=== PATIENT | male | born 1970 | race Caucasian/White ===

== ENCOUNTER 2017-02-24 08:31 | Emergency (ER) | payer OTHER ==
[2017-02-24] MEDS: KETOROLAC 60 MG INJ IM (09:25)
== END 2017-02-24 11:15 | disposition home or self-care (01) ==
LOC: E/R 08:31
DX: S42.215A Unspecified nondisplaced fracture of surgical neck of left humerus, initial encounter for closed fracture (principal); I10 Essential (primary) hypertension; E11.9 Type 2 diabetes mellitus without complications; W01.0XXA Fall on same level from slipping, tripping and stumbling without subsequent striking against object, initial encounter; Y92.89 Other specified places as the place of occurrence of the external cause; Z79.4 Long term (current) use of insulin; Z79.82 Long term (current) use of aspirin
CPT/HCPCS: 73030; 73060; 96372; 99284-25

== ENCOUNTER 2017-04-28 21:16 | Inpatient (IN) | payer OTHER ==
[2017-04-28] MEDS: PIPER-TAZO 3.375 GM IV (PMX) 100 ML IVPB (22:41)
[2017-04-28] MEDS: SODIUM CHLORIDE 0.9% 1L BAG IV* (22:41)
[2017-04-28 22:49] LABS: ADD MAN DIFF? NO
[2017-04-28 22:52] LABS: BASOPHIL # 0.1 10^3/ul (0.0-0.1); BASOPHILS % 0.4 % (0.0-2.0); EOSINOPHILS # 0.2 10^3/ul (0.0-0.5); EOSINOPHILS % 1.4 % (0.0-7.0); HEMATOCRIT 34.2 % (42.0-52.0); LYMPHOCYTES % 17.1 % (15.0-51.0); MEAN CORPUSCULAR HEMOGLOBIN 31.1 pg (29.0-33.0); MEAN CORPUSCULAR HGB CONC 35.1 g/dl (32.0-37.0); MEAN CORPUSCULAR VOLUME 88.6 fl (82.0-101.0); MEAN PLATELET VOLUME 9.2 fl (7.4-10.4); MONOCYTE # 0.8 10^3/ul (0.3-0.9); MONOCYTES % 7.2 % (0.0-11.0); NEUTROPHIL # 8.4 10^3/ul (1.6-7.5); NEUTROPHILS % 73.4 % (39.0-77.0); PLATELET COUNT 287 10^3/UL (140-415); RED BLOOD COUNT 3.86 10^6/ul (4.70-6.10); RED CELL DISTRIBUTION WIDTH 11.9 % (11.5-14.5)
[2017-04-28 22:52] LABS: WHITE BLOOD COUNT 11.5 10^3/ul (4.8-10.8)
[2017-04-28] MEDS: LABETALOL HCL 20MG INJ IV (23:00)
[2017-04-28 23:11] LABS: INR 0.99; PROTIME 13.2 Sec (11.9-14.9)
[2017-04-28 23:12] LABS: PARTIAL THROMBOPLASTIN TIME 32.9 Sec (25.0-35.0)
[2017-04-28 23:14] LABS: ALANINE AMINOTRANSFERASE 12 IU/L (13-69); ALBUMIN 4.2 g/dl (3.3-4.9); ALBUMIN/GLOBULIN RATIO 1.16; ALKALINE PHOSPHATASE 129 IU/L (42-121); ANION GAP 16 (8-16); ASPARTATE AMINO TRANSFERASE 14 IU/L (15-46); BILIRUBIN,INDIRECT 0.3 mg/dl (0-1.1); BILIRUBIN,TOTAL 0.3 mg/dl (0.2-1.3); BLOOD UREA NITROGEN 15 mg/dl (7-20); CALCIUM 9.4 mg/dl (8.4-10.2); CARBON DIOXIDE 27 mmol/L (21-31); CHLORIDE 104 mmol/L (97-110); CREATININE 0.73 mg/dl (0.61-1.24); GLUCOSE 165 mg/dl (70-220); POTASSIUM 3.9 mmol/L (3.5-5.1); SODIUM 143 mmol/L (135-144); TOTAL PROTEIN 7.8 g/dl (6.1-8.1)
[2017-04-28 23:16] LABS: LACTIC ACID 1.1 mmol/L (0.5-2.0)
[2017-04-28 23:21] LABS: HEMOGLOBIN A1C 6.3 % (0-5.9)
[2017-04-28 23:26] LABS: TROPONIN-I < 0.012 ng/ml (0.00-0.12)
[2017-04-29] MEDS: VANCOMYCIN 1 GM (PMX) 250 ML IVPB (00:15)
[2017-04-29 01:04] LABS: LACTIC ACID 1.2 mmol/L (0.5-2.0)
[2017-04-29] MEDS ORDERED: ONDANSETRON 4 MG INJ IV ×2 (02:30)
[2017-04-29 03:00] LABS: LACTIC ACID 0.8 mmol/L (0.5-2.0)
[2017-04-29] MEDS: KETOROLAC 30 MG INJ IV ×3 (04:14→21:12)
[2017-04-29 06:14] LABS: ADD MAN DIFF? NO
[2017-04-29 06:23] LABS: WHITE BLOOD COUNT 10.5 10^3/ul (4.8-10.8)
[2017-04-29 06:23] LABS: BASOPHIL # 0.1 10^3/ul (0.0-0.1); BASOPHILS % 0.7 % (0.0-2.0); EOSINOPHILS # 0.2 10^3/ul (0.0-0.5); HEMATOCRIT 32.2 % (42.0-52.0); LYMPHOCYTES # 2.8 10^3/ul (0.8-2.9); MEAN CORPUSCULAR HEMOGLOBIN 30.6 pg (29.0-33.0); MEAN CORPUSCULAR HGB CONC 34.2 g/dl (32.0-37.0); MEAN CORPUSCULAR VOLUME 89.4 fl (82.0-101.0); MEAN PLATELET VOLUME 9.6 fl (7.4-10.4); MONOCYTE # 0.9 10^3/ul (0.3-0.9); MONOCYTES % 8.2 % (0.0-11.0); NEUTROPHIL # 6.5 10^3/ul (1.6-7.5); NEUTROPHILS % 61.7 % (39.0-77.0); PLATELET COUNT 246 10^3/UL (140-415)
[2017-04-29 06:54] LABS: ALANINE AMINOTRANSFERASE 17 IU/L (13-69); ALBUMIN 3.7 g/dl (3.3-4.9); ALBUMIN/GLOBULIN RATIO 1.19; ALKALINE PHOSPHATASE 107 IU/L (42-121); ANION GAP 14 (8-16); ASPARTATE AMINO TRANSFERASE 14 IU/L (15-46); BILIRUBIN,INDIRECT 0.3 mg/dl (0-1.1); BILIRUBIN,TOTAL 0.3 mg/dl (0.2-1.3); BLOOD UREA NITROGEN 13 mg/dl (7-20); CALCIUM 8.8 mg/dl (8.4-10.2); CARBON DIOXIDE 24 mmol/L (21-31); CHLORIDE 111 mmol/L (97-110); CHOLESTEROL 126 mg/dl (100-200); CREATININE 0.67 mg/dl (0.61-1.24); GLUCOSE 136 mg/dl (70-220); HDL CHOLESTEROL 31 mg/dl (27-67); LDL CHOLESTEROL,CALCULATED 83 mg/dl; MAGNESIUM 1.5 mg/dl (1.7-2.5); PHOSPHORUS 2.9 mg/dl (2.5-4.9); POTASSIUM 3.9 mmol/L (3.5-5.1); SODIUM 145 mmol/L (135-144); TOTAL PROTEIN 6.8 g/dl (6.1-8.1); TRIGLYCERIDES 61 mg/dl (0-149)
[2017-04-29] MEDS ORDERED: VANCOMYCIN IV PER PHARMACY XX (07:00)
[2017-04-29] MEDS: morphine 2 MG INJ IV ×2 (08:21→17:07)
[2017-04-29] MEDS: CEFEPIME 1GM/50 ML (PMX) 50 ML IVPB ×2 (09:39→23:00)
[2017-04-29] MEDS: LOSARTAN 50 MG TAB PO (09:40)
[2017-04-29] MEDS: ASPIRIN (EC) 325 MG TAB PO (09:41)
[2017-04-29] MEDS: METOPROLOL (XL) 25 MG TAB PO (09:41)
[2017-04-29] MEDS: HEPARIN 5,000 UNIT/0.5 ML VIAL SC ×2 (09:59→21:13)
[2017-04-29] MEDS: VANCOMYCIN 1.5 GM in SOD CHLORIDE 0.9% 250 ML IVPB ×2 (11:00→18:48)
[2017-04-29] MEDS ORDERED: GLUCOSE GEL 15 GRAM TUBE PO ×2 (11:30)
[2017-04-29] MEDS ORDERED: DEXTROSE 50% 50 ML SYRINGE IV ×2 (11:30)
[2017-04-29] MEDS ORDERED: GLUCOSE GEL 15 GRAM TUBE BUCCAL (11:30)
[2017-04-29] MEDS ORDERED: GLUCAGON 1 MG INJ IM (11:30)
[2017-04-29 12:12] LABS: C-REACTIVE PROTEIN 5.9 mg/dl (0.0-0.9)
[2017-04-29] MEDS: INSULIN ASPART [NOVOLOG] 3 ML PEN SC ×5 (12:15→21:00)
[2017-04-29] MEDS: MAGNESIUM SULFATE 2 GM/50 ML 50 ML IVPB (15:56)
[2017-04-29] MEDS: DIAZEPAM 5 MG TAB PO ×2 (15:57→21:07)
[2017-04-29 17:12] LABS: AMPHETAMINE/METHAMPHETAMINE Negative (NEGATIVE); BARBITURATES Negative (NEGATIVE); BENZODIAZEPINES Negative (NEGATIVE); CANNABINOIDS Negative (NEGATIVE); COCAINE Negative (NEGATIVE); OPIATES Negative (NEGATIVE)
[2017-04-29] MEDS: ATORVASTATIN 80 MG TAB PO (21:12)
[2017-04-30] MEDS: ACCU-CHEK XX (01:33)
[2017-04-30] MEDS: KETOROLAC 30 MG INJ IV ×2 (03:51→21:08)
[2017-04-30] MEDS: VANCOMYCIN 1.5 GM in SOD CHLORIDE 0.9% 250 ML IVPB ×3 (03:51→16:43)
[2017-04-30] MEDS: DIAZEPAM 5 MG TAB PO ×3 (06:00→21:08)
[2017-04-30 06:13] LABS: ADD MAN DIFF? NO
[2017-04-30 06:22] LABS: WHITE BLOOD COUNT 9.6 10^3/ul (4.8-10.8)
[2017-04-30 06:22] LABS: BASOPHIL # 0.1 10^3/ul (0.0-0.1); BASOPHILS % 0.5 % (0.0-2.0); EOSINOPHILS # 0.2 10^3/ul (0.0-0.5); EOSINOPHILS % 2.2 % (0.0-7.0); HEMATOCRIT 32.3 % (42.0-52.0); HEMOGLOBIN 11.1 g/dl (14.0-18.0); LYMPHOCYTES # 2.2 10^3/ul (0.8-2.9); MEAN CORPUSCULAR HEMOGLOBIN 30.7 pg (29.0-33.0); MEAN CORPUSCULAR HGB CONC 34.4 g/dl (32.0-37.0); MEAN CORPUSCULAR VOLUME 89.2 fl (82.0-101.0); MEAN PLATELET VOLUME 9.3 fl (7.4-10.4); MONOCYTE # 0.7 10^3/ul (0.3-0.9); MONOCYTES % 7.3 % (0.0-11.0); NEUTROPHIL # 6.4 10^3/ul (1.6-7.5); NEUTROPHILS % 66.6 % (39.0-77.0); PLATELET COUNT 286 10^3/UL (140-415); RED BLOOD COUNT 3.62 10^6/ul (4.70-6.10); RED CELL DISTRIBUTION WIDTH 11.9 % (11.5-14.5)
[2017-04-30 06:44] LABS: PHOSPHORUS 3.3 mg/dl (2.5-4.9)
[2017-04-30 06:44] LABS: MAGNESIUM 1.8 mg/dl (1.7-2.5)
[2017-04-30 06:46] LABS: ANION GAP 15 (8-16); BLOOD UREA NITROGEN 12 mg/dl (7-20); CALCIUM 9.3 mg/dl (8.4-10.2); CARBON DIOXIDE 26 mmol/L (21-31); CHLORIDE 106 mmol/L (97-110); GLUCOSE 132 mg/dl (70-220); POTASSIUM 4.2 mmol/L (3.5-5.1); SODIUM 143 mmol/L (135-144)
[2017-04-30] MEDS: INSULIN ASPART [NOVOLOG] 3 ML PEN SC ×7 (08:15→21:00)
[2017-04-30] MEDS ORDERED: ENOXAPARIN 40 MG/0.4 ML SYG SC (09:00)
[2017-04-30] MEDS: METOPROLOL (XL) 25 MG TAB PO (10:07)
[2017-04-30] MEDS: LOSARTAN 50 MG TAB PO (10:08)
[2017-04-30] MEDS: ASPIRIN (EC) 325 MG TAB PO (10:08)
[2017-04-30] MEDS: HEPARIN 5,000 UNIT/0.5 ML VIAL SC ×2 (10:10→21:11)
[2017-04-30 11:52] LABS: VANCOMYCIN,TROUGH 20.5 ug/ml (10.0-20.0)
[2017-04-30] MEDS: CEFEPIME 1GM/50 ML (PMX) 50 ML IVPB ×2 (14:37→21:07)
[2017-04-30] MEDS: ATORVASTATIN 80 MG TAB PO (21:08)
[2017-05-01] MEDS: ACCU-CHEK XX (02:00)
[2017-05-01] MEDS: VANCOMYCIN 1.5 GM in SOD CHLORIDE 0.9% 250 ML IVPB (03:28)
[2017-05-01] MEDS: hydrALAzine 20 MG INJ IV ×3 (04:37→22:36)
[2017-05-01] MEDS: DIAZEPAM 5 MG TAB PO ×3 (05:17→21:20)
[2017-05-01 06:02] LABS: ADD MAN DIFF? NO
[2017-05-01 06:10] LABS: WHITE BLOOD COUNT 8.9 10^3/ul (4.8-10.8)
[2017-05-01 06:10] LABS: BASOPHILS % 0.4 % (0.0-2.0); EOSINOPHILS # 0.2 10^3/ul (0.0-0.5); EOSINOPHILS % 2.6 % (0.0-7.0); HEMATOCRIT 36.5 % (42.0-52.0); HEMOGLOBIN 12.7 g/dl (14.0-18.0); LYMPHOCYTES # 2.5 10^3/ul (0.8-2.9); LYMPHOCYTES % 28.1 % (15.0-51.0); MEAN CORPUSCULAR HEMOGLOBIN 30.7 pg (29.0-33.0); MEAN CORPUSCULAR HGB CONC 34.8 g/dl (32.0-37.0); MEAN CORPUSCULAR VOLUME 88.2 fl (82.0-101.0); MEAN PLATELET VOLUME 10.2 fl (7.4-10.4); MONOCYTE # 0.6 10^3/ul (0.3-0.9); NEUTROPHIL # 5.5 10^3/ul (1.6-7.5); NEUTROPHILS % 61.6 % (39.0-77.0); POSITIVE DIFF @See below; RED BLOOD COUNT 4.14 10^6/ul (4.70-6.10); RED CELL DISTRIBUTION WIDTH 11.5 % (11.5-14.5)
[2017-05-01 06:41] LABS: PHOSPHORUS 3.2 mg/dl (2.5-4.9)
[2017-05-01 06:41] LABS: MAGNESIUM 1.5 mg/dl (1.7-2.5)
[2017-05-01 06:44] LABS: ANION GAP 16 (8-16); BLOOD UREA NITROGEN 12 mg/dl (7-20); CALCIUM 9.2 mg/dl (8.4-10.2); CARBON DIOXIDE 26 mmol/L (21-31); CHLORIDE 106 mmol/L (97-110); CREATININE 0.62 mg/dl (0.61-1.24); GLUCOSE 125 mg/dl (70-220); POTASSIUM 3.9 mmol/L (3.5-5.1); SODIUM 144 mmol/L (135-144)
[2017-05-01 07:12] LABS: PLATELET COUNT 222 10^3/UL (140-415)
[2017-05-01] MEDS: INSULIN ASPART [NOVOLOG] 3 ML PEN SC ×7 (07:52→21:00)
[2017-05-01] MEDS: CEFEPIME 1GM/50 ML (PMX) 50 ML IVPB ×2 (08:21→21:20)
[2017-05-01] MEDS: ASPIRIN (EC) 325 MG TAB PO (08:22)
[2017-05-01] MEDS: LOSARTAN 50 MG TAB PO (08:22)
[2017-05-01] MEDS: METOPROLOL (XL) 25 MG TAB PO (08:22)
[2017-05-01] MEDS: HEPARIN 5,000 UNIT/0.5 ML VIAL SC ×2 (08:25→21:00)
[2017-05-01] MEDS: KETOROLAC 30 MG INJ IV ×2 (10:30→22:36)
[2017-05-01] MEDS: MAGNESIUM SULFATE 2 GM/50 ML 50 ML IVPB (16:29)
[2017-05-01] MEDS: CIPROFLOXACIN 500 MG TAB PO (17:42)
[2017-05-01] MEDS: ATORVASTATIN 80 MG TAB PO (21:25)
[2017-05-02] MEDS: ACCU-CHEK XX (01:16)
[2017-05-02] MEDS: DIAZEPAM 5 MG TAB PO ×3 (05:16→20:34)
[2017-05-02] MEDS: CIPROFLOXACIN 500 MG TAB PO ×2 (05:55→17:42)
[2017-05-02 06:01] LABS: ADD MAN DIFF? NO
[2017-05-02 06:07] LABS: WHITE BLOOD COUNT 10.4 10^3/ul (4.8-10.8)
[2017-05-02 06:07] LABS: BASOPHIL # 0.1 10^3/ul (0.0-0.1); BASOPHILS % 0.6 % (0.0-2.0); EOSINOPHILS # 0.2 10^3/ul (0.0-0.5); EOSINOPHILS % 2.3 % (0.0-7.0); HEMATOCRIT 37.9 % (42.0-52.0); HEMOGLOBIN 13.2 g/dl (14.0-18.0); LYMPHOCYTES # 2.6 10^3/ul (0.8-2.9); LYMPHOCYTES % 24.8 % (15.0-51.0); MEAN CORPUSCULAR HEMOGLOBIN 30.5 pg (29.0-33.0); MEAN CORPUSCULAR HGB CONC 34.8 g/dl (32.0-37.0); MEAN CORPUSCULAR VOLUME 87.5 fl (82.0-101.0); MONOCYTE # 0.6 10^3/ul (0.3-0.9); NEUTROPHIL # 6.8 10^3/ul (1.6-7.5); NEUTROPHILS % 65.9 % (39.0-77.0); PLATELET COUNT 303 10^3/UL (140-415); RED BLOOD COUNT 4.33 10^6/ul (4.70-6.10); RED CELL DISTRIBUTION WIDTH 11.7 % (11.5-14.5)
[2017-05-02 06:21] LABS: ANION GAP 18 (8-16); BLOOD UREA NITROGEN 13 mg/dl (7-20); CALCIUM 9.9 mg/dl (8.4-10.2); CARBON DIOXIDE 26 mmol/L (21-31); CHLORIDE 104 mmol/L (97-110); CREATININE 0.63 mg/dl (0.61-1.24); GLUCOSE 144 mg/dl (70-220); POTASSIUM 3.9 mmol/L (3.5-5.1); SODIUM 144 mmol/L (135-144)
[2017-05-02 06:23] LABS: PHOSPHORUS 3.2 mg/dl (2.5-4.9)
[2017-05-02 06:23] LABS: MAGNESIUM 1.7 mg/dl (1.7-2.5)
[2017-05-02] MEDS: INSULIN ASPART [NOVOLOG] 3 ML PEN SC ×7 (08:13→20:33)
[2017-05-02] MEDS: ASPIRIN (EC) 325 MG TAB PO (09:17)
[2017-05-02] MEDS: CEFEPIME 1GM/50 ML (PMX) 50 ML IVPB ×2 (09:17→20:25)
[2017-05-02] MEDS: LOSARTAN 50 MG TAB PO (09:18)
[2017-05-02] MEDS: IBUPROFEN 400 MG TAB PO (09:18)
[2017-05-02] MEDS: METOPROLOL (XL) 50 MG TAB PO (09:19)
[2017-05-02] MEDS: HEPARIN 5,000 UNIT/0.5 ML VIAL SC ×2 (09:22→20:33)
[2017-05-02] MEDS: FAMOTIDINE 20 MG TAB PO ×2 (11:37→20:25)
[2017-05-02] MEDS: ATORVASTATIN 80 MG TAB PO (20:25)
[2017-05-03] MEDS: IBUPROFEN 400 MG TAB PO ×2 (00:39→17:18)
[2017-05-03] MEDS: ACCU-CHEK XX (02:00)
[2017-05-03] MEDS: DIAZEPAM 5 MG TAB PO ×3 (06:00→22:00)
[2017-05-03] MEDS: CIPROFLOXACIN 500 MG TAB PO ×2 (06:34→17:18)
[2017-05-03] MEDS: INSULIN ASPART [NOVOLOG] 3 ML PEN SC ×7 (08:04→21:00)
[2017-05-03] MEDS: CEFEPIME 1GM/50 ML (PMX) 50 ML IVPB ×2 (08:30→21:03)
[2017-05-03] MEDS: ASPIRIN (EC) 325 MG TAB PO (08:57)
[2017-05-03] MEDS: HEPARIN 5,000 UNIT/0.5 ML VIAL SC ×2 (08:57→21:10)
[2017-05-03] MEDS: FAMOTIDINE 20 MG TAB PO ×2 (08:57→21:02)
[2017-05-03] MEDS: METOPROLOL (XL) 50 MG TAB PO (08:58)
[2017-05-03] MEDS: LOSARTAN 50 MG TAB PO (08:58)
[2017-05-03 12:16] LABS: B-TYPE NATRIURETIC PEPTIDE 85 PG/ML (0-125)
[2017-05-03] MEDS: ATORVASTATIN 80 MG TAB PO (21:02)
[2017-05-04] MEDS: ACCU-CHEK XX (02:00)
[2017-05-04] MEDS: CIPROFLOXACIN 500 MG TAB PO ×2 (05:53→18:19)
[2017-05-04] MEDS: DIAZEPAM 5 MG TAB PO ×3 (05:53→21:51)
[2017-05-04] MEDS: INSULIN ASPART [NOVOLOG] 3 ML PEN SC ×7 (07:58→20:28)
[2017-05-04] MEDS: LOSARTAN 50 MG TAB PO (08:04)
[2017-05-04] MEDS: FAMOTIDINE 20 MG TAB PO ×2 (08:04→20:17)
[2017-05-04] MEDS: METOPROLOL (XL) 50 MG TAB PO (08:05)
[2017-05-04] MEDS: HEPARIN 5,000 UNIT/0.5 ML VIAL SC ×2 (08:07→20:27)
[2017-05-04] MEDS: CEFEPIME 1GM/50 ML (PMX) 50 ML IVPB ×2 (09:07→20:17)
[2017-05-04] MEDS: ASPIRIN (EC) 325 MG TAB PO (09:07)
[2017-05-04] MEDS: IBUPROFEN 400 MG TAB PO (15:08)
[2017-05-04] MEDS: ATORVASTATIN 80 MG TAB PO (20:17)
[2017-05-05] MEDS: ACCU-CHEK XX (02:00)
[2017-05-05] MEDS: DIAZEPAM 5 MG TAB PO ×2 (05:44→13:14)
[2017-05-05] MEDS: CIPROFLOXACIN 500 MG TAB PO ×2 (05:46→17:28)
[2017-05-05] MEDS: INSULIN ASPART [NOVOLOG] 3 ML PEN SC ×7 (07:56→20:51)
[2017-05-05] MEDS: LOSARTAN 50 MG TAB PO (08:18)
[2017-05-05] MEDS: ASPIRIN (EC) 325 MG TAB PO (08:18)
[2017-05-05] MEDS: CEFEPIME 1GM/50 ML (PMX) 50 ML IVPB ×2 (08:18→20:50)
[2017-05-05] MEDS: METOPROLOL (XL) 50 MG TAB PO (08:18)
[2017-05-05] MEDS: HEPARIN 5,000 UNIT/0.5 ML VIAL SC ×2 (08:23→20:56)
[2017-05-05] MEDS: FAMOTIDINE 20 MG TAB PO ×2 (09:58→20:50)
[2017-05-05] MEDS: ATORVASTATIN 80 MG TAB PO (20:50)
[2017-05-06] MEDS: ACCU-CHEK XX (02:00)
[2017-05-06] MEDS: CIPROFLOXACIN 500 MG TAB PO ×2 (06:44→17:38)
[2017-05-06] MEDS: CEFEPIME 1GM/50 ML (PMX) 50 ML IVPB ×2 (08:07→20:31)
[2017-05-06] MEDS: ASPIRIN (EC) 325 MG TAB PO (08:07)
[2017-05-06] MEDS: FAMOTIDINE 20 MG TAB PO ×2 (08:07→20:31)
[2017-05-06] MEDS: LOSARTAN 50 MG TAB PO (08:08)
[2017-05-06] MEDS: METOPROLOL (XL) 50 MG TAB PO (08:08)
[2017-05-06] MEDS: INSULIN ASPART [NOVOLOG] 3 ML PEN SC ×7 (08:10→20:32)
[2017-05-06] MEDS: HEPARIN 5,000 UNIT/0.5 ML VIAL SC ×2 (08:11→20:34)
[2017-05-06] MEDS: ATORVASTATIN 80 MG TAB PO (20:31)
[2017-05-07] MEDS: ACCU-CHEK XX (02:00)
[2017-05-07] MEDS: CIPROFLOXACIN 500 MG TAB PO ×2 (05:11→17:33)
[2017-05-07] MEDS: ASPIRIN (EC) 325 MG TAB PO (09:35)
[2017-05-07] MEDS: CEFEPIME 1GM/50 ML (PMX) 50 ML IVPB (09:35)
[2017-05-07] MEDS: LOSARTAN 50 MG TAB PO (09:36)
[2017-05-07] MEDS: METOPROLOL (XL) 50 MG TAB PO (09:36)
[2017-05-07] MEDS: FAMOTIDINE 20 MG TAB PO (09:36)
[2017-05-07] MEDS: HEPARIN 5,000 UNIT/0.5 ML VIAL SC (09:38)
[2017-05-07] MEDS: INSULIN ASPART [NOVOLOG] 3 ML PEN SC ×6 (09:38→17:36)
== END 2017-05-07 18:50 | disposition home or self-care (01) | DRG 603 ==
LOC: MS2 05-04 12:32 → E/R 21:16
PROC: 0H9LXZZ Drainage of Left Lower Leg Skin, External Approach (ICD-10-PCS; principal; 2017-04-29)
DX: L03.116 Cellulitis of left lower limb (principal); I69.354 Hemiplegia and hemiparesis following cerebral infarction affecting left non-dominant side; Z68.41 Body mass index [BMI] 40.0-44.9, adult; I65.23 Occlusion and stenosis of bilateral carotid arteries; F32.9 Major depressive disorder, single episode, unspecified; F41.9 Anxiety disorder, unspecified; F43.10 Post-traumatic stress disorder, unspecified; L02.416 Cutaneous abscess of left lower limb; M19.90 Unspecified osteoarthritis, unspecified site; E78.00 Pure hypercholesterolemia, unspecified; I10 Essential (primary) hypertension; F12.90 Cannabis use, unspecified, uncomplicated; E66.01 Morbid (severe) obesity due to excess calories; E11.9 Type 2 diabetes mellitus without complications; Z87.81 Personal history of (healed) traumatic fracture; Z79.4 Long term (current) use of insulin; Z79.82 Long term (current) use of aspirin; Z87.891 Personal history of nicotine dependence
CPT/HCPCS: 36415; 71045; 76536; 80048; 80053; 80061; 80202; 80307; 82306; 82652; 82962; 83036; 83605; 83735; 83880; 84100; 84484; 85025; 85610; 85651; 85730; 86140; 87040; 87070; 93005; 93970; 93971; 96365; 96375; 99291-25

== ENCOUNTER 2017-05-27 18:21 | Emergency (ER) | payer SELFPAY, OTHER | END 2017-05-27 22:09 | disposition left against medical advice (07) | LOC: E/R 22:09 | DX: Z53.21 Procedure and treatment not carried out due to patient leaving prior to being seen by health care provider (principal) ==

== ENCOUNTER 2017-10-23 17:57 | Emergency (ER) | payer OTHER ==
[2017-10-23 18:42] LABS: ADD MAN DIFF? NO
[2017-10-23 18:45] LABS: WHITE BLOOD COUNT 10.6 10^3/ul (4.8-10.8)
[2017-10-23 18:45] LABS: BASOPHILS % 0.4 % (0.0-2.0); EOSINOPHILS # 0.3 10^3/ul (0.0-0.5); EOSINOPHILS % 2.4 % (0.0-7.0); HEMATOCRIT 36.5 % (42.0-52.0); HEMOGLOBIN 12.7 g/dl (14.0-18.0); LYMPHOCYTES # 2.7 10^3/ul (0.8-2.9); LYMPHOCYTES % 25.5 % (15.0-51.0); MEAN CORPUSCULAR HEMOGLOBIN 30.5 pg (29.0-33.0); MEAN CORPUSCULAR HGB CONC 34.8 g/dl (32.0-37.0); MEAN CORPUSCULAR VOLUME 87.7 fl (82.0-101.0); MEAN PLATELET VOLUME 9.4 fl (7.4-10.4); MONOCYTE # 0.5 10^3/ul (0.3-0.9); MONOCYTES % 4.9 % (0.0-11.0); NEUTROPHILS % 65.8 % (39.0-77.0); PLATELET COUNT 263 10^3/UL (140-415); RED BLOOD COUNT 4.16 10^6/ul (4.70-6.10)
[2017-10-23 19:07] LABS: ALANINE AMINOTRANSFERASE 18 IU/L (13-69); ALBUMIN 4.1 g/dl (3.3-4.9); ALBUMIN/GLOBULIN RATIO 1.13; ALKALINE PHOSPHATASE 146 IU/L (42-121); ANION GAP 14 (8-16); ASPARTATE AMINO TRANSFERASE 21 IU/L (15-46); BILIRUBIN,INDIRECT 0.5 mg/dl (0-1.1); BILIRUBIN,TOTAL 0.5 mg/dl (0.2-1.3); BLOOD UREA NITROGEN 11 mg/dl (7-20); CALCIUM 9.1 mg/dl (8.4-10.2); CARBON DIOXIDE 23 mmol/L (21-31); CHLORIDE 106 mmol/L (97-110); CREATININE 0.68 mg/dl (0.61-1.24); GLUCOSE 235 mg/dl (70-220); LIPASE 23 U/L (23-300); POTASSIUM 3.9 mmol/L (3.5-5.1); SODIUM 139 mmol/L (135-144); TOTAL PROTEIN 7.7 g/dl (6.1-8.1)
[2017-10-23 19:13] LABS: URINE PH (Dip) POC 6.5 (5.0-8.5)
[2017-10-23 19:13] LABS: URINE BLOOD (Dip) POC Negative (NEGATIVE); URINE KETONES (Dip) POC Negative (NEGATIVE); URINE LEUKOCYTE EST (Dip) POC Negative (NEGATIVE); URINE NITRITE (Dip) POC Negative (NEGATIVE); URINE TOTAL PROTEIN POC 2+ (NEGATIVE)
[2017-10-23] MEDS: KETOROLAC 30 MG INJ IV (19:24)
== END 2017-10-23 20:08 | disposition home or self-care (01) ==
LOC: E/R 17:57
DX: M54.5 Low back pain (principal); D64.9 Anemia, unspecified; I10 Essential (primary) hypertension; E11.9 Type 2 diabetes mellitus without complications; Z79.82 Long term (current) use of aspirin; Z79.84 Long term (current) use of oral hypoglycemic drugs; Z86.73 Personal history of transient ischemic attack (TIA), and cerebral infarction without residual deficits
CPT/HCPCS: 36415; 80053; 81003; 83690; 85025; 96374; 99284-25